=== PATIENT | female | born 1960 | race Caucasian/White ===

== ENCOUNTER 2023-07-11 14:53 | Emergency (ER) | payer BC, SELFPAY ==
[2023-07-11 14:56] VITALS: BP 152/126
[2023-07-11 15:23] LABS: % Basophils 0.9 % (0-2); % Eosinophils 2.8 % (0-6); % Immature Granulocytes 0.5 % (0-0.5); % Lymphocytes 28.3 % (20.5-51.1); % Monocytes 8.2 % (1.7-9.3); % Neutrophils 59.3 % (42.2-75.2); Absolute Basophils 0.1 10^3/uL (0-0.2); Absolute Eosinophils 0.2 10^3/uL (0-0.7); Absolute Lymphocytes 2.5 10^3/uL (1.2-3.4); Absolute Monocytes 0.7 10^3/uL (0.1-0.6); Absolute Neutrophils 5.1 10^3/uL (1.4-6.5); Hematocrit 45.5 % (37.0-47.0); Hemoglobin 14.9 g/dL (12.0-16.0); Mean Corp Hgb Conc. 32.7 g/dL (33.0-37.0); Mean Corpuscular Hgb 29.8 pg (27.0-31.0); Mean Platelet Volume 8.8 fL (7.4-10.4); Nucleated Red Blood Cells % 0 %; Platelet Count 386 10^3/uL (130-400); Red Cell Dist. Width 13.8 % (11.5-14.5); White Blood Cell Count 8.7 10^3/uL (4.8-10.8)
[2023-07-11 15:37] LABS: COVID-19 Antigen Negative (Negative)
[2023-07-11 15:39] LABS: ALT (SGPT) 21 U/L (0-35); AST (SGOT) 25 U/L (14-36); Albumin 4.4 g/dl (3.5-5.0); Alkaline Phosphatase 91 U/L (38-126); Blood Urea Nitrogen 9 mg/dl (7-17); Calcium 9.9 mg/dl (8.4-10.2); Carbon Dioxide 27 mmol/L (22-30); Chloride 104 mmol/L (98-107); Glucose 97 mg/dl (70-99); Sodium 141 mmol/L (135-145); Total Bilirubin 0.9 mg/dl (0.2-1.3); Total Protein 7.6 g/dl (6.3-8.2); eGFR > 60.00
[2023-07-11 17:07] VITALS: BP 150/87
[2023-07-11] MEDS: DECADRON 10 MG PO (17:12)
[2023-07-11] MEDS: DUONEB 3 ML INH (17:13)
[2023-07-11 17:45] LABS: D-Dimer 0.44 ug/mlFEU (0.00-0.50)
[2023-07-11 18:00] VITALS: BP 142/79
[2023-07-11 18:20] VITALS: BP 181/73
[2023-07-11 19:00] VITALS: BP 156/88
--- NOTE | 2023-07-11 20:29 | ED.GENMED ---
History of Present Illness
General
Chief Complaint: Breathing Problem
Source: patient
Exam Limitations: none
Time Seen by Provider: 07/11/23 16:39
Nursing documentation reviewed up to this point in time: agreed with
Travel History
Have you had any contact with someone who has COVID-19?: No
Do you have any symptoms of coronavirus? Fever > 100 degrees, chills, cough, shortness of breath, sore throat, loss of taste or smell, muscle aches, or headache?: No
History of Present Illness
History of Present Illness:
Patient to ED with complaint of wheezing. States she noticed symptoms over weekend.Today symptoms were worse. GODWIN withminimal activity. Brought self to ED for eval. Denies fever/chill, CP/pressure.
Past History
Past History
ED Past Medical History: Asthma, GERD, HTN and Other (C. difficile, migraines, sleep apnea, kidney stones)
ED Past Surgical History: Cholecystectomy and Orthopedic
Social History
Tobacco: Non-smoker
Personal:
Employment: Employed
Family History
Family History: Adopted
Review of Systems
Review of Systems
Allergies reviewed?: Yes
All Other Systems: ROS reviewed and negative except as documented in HPI and ROS
Constitutional: Reports no symptoms
EENT: Reports no symptoms
Respiratory: Reports cough and trouble breathing
Cardiac: Reports no symptoms
ABD/GI: Reports no symptoms
: Reports no symptoms
Musculoskeletal: Reports no symptoms
Skin: Reports no symptoms
Neurological: Reports no symptoms
Psychiatric: Reports no symptoms
Phy Exam
General Physical Exam
General Presentation: well appearing and no apparent distress
General age: appears stated age
General Skin: warm and dry
General Habitus: normal
General Mental: alert
Cardiovascular Exam
Cardiovascular Exam: regular rate/rhythm and no edema
Pulmonary Exam
Pulmonary Exam: no respiratory distress and chest non tender
Breath Sounds: Wheeze: generalized (expiratory)
Musculoskeletal Exam
Musculoskeletal Exam: full ROM and neuro vasc intact
Skin Exam
Skin Exam: normal color, warm/dry and no rash
Psychiatric Exam
Psychiatric Exam: normal mood/affect
Scores
Heart Failure Risk
Heart Failure Risk Score: Not Applicable
Course
Orders/Labs/Results
Orders:
Orders
07/11/23 15:00
Chest [CR Chest - 2 Views ] Urgent
Comment:
Reason For Exam: cough
07/11/23 15:01
EKG [Electrocardiogram (*1)] Urgent
Reason for Study: Shortness of Breath
EKG- Treatment ONCE
07/11/23 15:10
CBC/With Diff [Complete Blood Count/With Diff] Urgent
CMP [Comprehensive Metabolic Panel] Urgent
COVID-19 Antigen Urgent
Source: Nasal Swab
INF RAPID [Influenza A+B Rapid Molecular] Urgent
DENNIS Source: Nasal Swab
Specimen Description:
07/11/23 16:55
Dexamethasone Pf [Decadron] 10 mg PO NOW STA
Ipratropium/Albuterol Sulfate [Duoneb] 3 ml INH R NOW STA
07/11/23 17:27
D-Dimer Urgent
Abnormal Lab Results
07/11/23
15:10
MCHC 32.7 L g/dL
(33.0-37.0)
Absolute Monos (auto) 0.7 H 10^3/uL
(0.1-0.6)
07/11/23 15:10
07/11/23 15:10
Vital Signs
Initial and Last Documented VS:
Initial Vital Signs
Temp Pulse Resp BP Pulse Ox
97.4 F 112 18 152/126 98
07/11/23 14:56 07/11/23 14:56 07/11/23 14:56 07/11/23 14:56 07/11/23 14:56
Last Documented Vital Signs
Temp Pulse Resp BP Pulse Ox
97.4 F 92 12 156/88 95
07/11/23 14:56 07/11/23 19:00 07/11/23 18:45 07/11/23 19:00 07/11/23 19:00
*Radiology
Radiology exam reviewed: radiology read reviewed
*Pulse Oximetry
Patient hypoxic: no
*Critical Care Note
Total Time (30-74mins, 75-104mins- exclusive of procedures): Not Applicable
Update Note
Update Note:
Patient improved after duoneb. Decadron given in dept. Will continue pednisone taper at home. Able to ambulate in dept without hypoxia. Will discharge home and she will follow up with PCP. Onelia instructions s/s to return to EDf and she is
agreeable to plan
ED Attending Note
-
Portions of this chart may have been created with voice recognition software.� Occasional wrong word or��sound alike� substitutions may have occurred due to the inherent limitations of voice recognition software.
Discharge Plan
Departure
Patient Disposition: Home (Routine Discharge)
Date of Disposition: 07/11/23
Time of Disposition: 18:40
Patient with high blood pressure during this ER visit?: No
Condition: Good
Covid-19: Not Applicable
Discharge Problem:
GODWIN (dyspnea on exertion)
Instructions: Shortness of Breath (Dyspnea) (DC)
Prescriptions:
New
prednisone 10 mg Tablet
See Rx Instructions .ROUTE .COMPLEX Qty: 30 0RF
Rx Instructions:
Take By Mouth:
40 mg daily x3 days, 30 mg daily x3 days,
20 mg daily x3 days, 10 mg daily x3 days.
No Action
atenolol 50 MG tablet
50 mg PO DAILY
amlodipine 5 MG tablet
5 mg PO DAILY Qty: 90 3RF
duloxetine 30 MG capsule,delayed release(DR/EC)
30 mg PO DAILY
albuterol sulfate 1 PUFF HFA aerosol inhaler
2 puff inhalation R Q4HPRN PRN (Reason: SOB)
cyanocobalamin (vitamin B-12) 1,000 mcg Tablet
1,000 mcg PO DAILY
omeprazole 40 mg Capsule,Delayed Release(Dr/Ec)
40 mg PO DAILY
ascorbic acid (vitamin C) [Vitamin C] 250 mg Tablet,Chewable
500 mg PO DAILY
ibuprofen [Advil] 200 mg Tablet
400 mg PO Q8HPRN PRN (Reason: mild pain)
fluticasone propion-salmeterol [Advair HFA] 115-21 mcg/actuation Hfa Aerosol Inhaler
1 puff INHALATION R BID
cholecalciferol (vitamin D3) [Vitamin D3] 25 mcg (1,000 unit) Tablet
25 mcg PO DAILY
Referrals:
Eufemia Rodriguez CRNP [Family Provider] - Follow up in 2-3 days
Interventions
Interventions:
*Risk Screen - Suicide Last Done: 07/11/23 14:56
*General Assessment Last Done: 07/11/23 14:56
*Neglect/Abuse Screening Last Done: 07/11/23 14:56
ED- Fall Risk Assessment Last Done: 07/11/23 19:08
*ED COVID-19 Vaccine History Last Done: 07/11/23 16:37
*Nursing Disposition Last Done: 07/11/23 19:08
ED- Cardiac Assessment Last Done: 07/11/23 17:47
ED- Pulmonary Assessment Last Done: 07/11/23 17:47
Discharge Date and Time
Discharge Date/Time: 07/11/23 19:11
Print Language: CHADIAN
== END 2023-07-11 19:11 | disposition home or self-care (01) ==
LOC: EMR 14:53
PROVIDERS: Nurse Practitioner; EMERGENCY PHYSICIAN Emergency Medicine; FAMILY PHYSICIAN Nurse Practitioner Adult Health
DX: R06.09 Other forms of dyspnea (principal); Z11.52 Encounter for screening for COVID-19
CPT/HCPCS: 99285; 94640; 71046; 80053; 85025; 85379; 87502; 87811; 93005

== ENCOUNTER → 2023-11-18 13:57 | Outpatient (REF) | payer OTHER, SELFPAY | LOC: WDC 13:57 | PROVIDERS: ATTENDING PHYSICIAN Nurse Practitioner | DX: Z76.89 Persons encountering health services in other specified circumstances (principal); Z12.31 Encounter for screening mammogram for malignant neoplasm of breast | CPT/HCPCS: 77063; 77067 ==

== ENCOUNTER 2024-05-24 11:36 | Emergency (ER) | payer OTHER, SELFPAY ==
[2024-05-24] VITALS (8 sets, daily range): BP systolic 121–175; BP diastolic 72–104
[2024-05-24 13:11] LABS: % Basophils 0.9 % (0-2); % Eosinophils 1.8 % (0-6); % Immature Granulocytes 0.5 % (0-0.5); % Lymphocytes 28.3 % (20.5-51.1); % Neutrophils 62.5 % (42.2-75.2); Absolute Basophils 0.1 10^3/uL (0-0.2); Absolute Eosinophils 0.2 10^3/uL (0-0.7); Absolute Lymphocytes 2.3 10^3/uL (1.2-3.4); Absolute Monocytes 0.5 10^3/uL (0.1-0.6); Absolute Neutrophils 5.1 10^3/uL (1.4-6.5); Hematocrit 43.3 % (37.0-47.0); Hemoglobin 14.6 g/dL (12.0-16.0); Mean Corp Hgb Conc. 33.7 g/dL (33.0-37.0); Mean Corpuscular Hgb 30.3 pg (27.0-31.0); Mean Corpuscular Volume 89.8 fL (81.0-99.0); Mean Platelet Volume 8.6 fL (7.4-10.4); Nucleated Red Blood Cells % 0 %; Platelet Count 350 10^3/uL (130-400); Red Blood Cell Count 4.82 10^6/uL (4.20-5.40); Red Cell Dist. Width 13.5 % (11.5-14.5); White Blood Cell Count 8.1 10^3/uL (4.8-10.8)
[2024-05-24 13:20] LABS: ALT (SGPT) 26 U/L (0-35); AST (SGOT) 22 U/L (14-36); Albumin 4.5 g/dl (3.5-5.0); Alkaline Phosphatase 109 U/L (38-126); Blood Urea Nitrogen 17 mg/dl (7-17); Calcium 9.5 mg/dl (8.4-10.2); Carbon Dioxide 27 mmol/L (22-30); Chloride 103 mmol/L (98-107); Glucose 96 mg/dl (70-99); Potassium 4.6 mmol/L (3.5-5.1); Sodium 138 mmol/L (135-145); Total Bilirubin 0.9 mg/dl (0.2-1.3); Total Protein 7.2 g/dl (6.3-8.2); eGFR > 60.00
[2024-05-24 13:32] LABS: Troponin I < 0.012 ng/ml
--- NOTE | 2024-05-24 13:40 | ED.GENMED ---
History of Present Illness
<Latoya Bass PA-C - Last Filed: 05/24/24 23:54>
General
Chief Complaint: Chest Pain
Source: patient and spouse ( at bedside)
Exam Limitations: none
Time Seen by Provider: 05/24/24 13:03
Nursing documentation reviewed up to this point in time: agreed with
History of Present Illness
History of Present Illness:
Patient is a 64-year-old female with history hypertension, NSTEMI 2013 presenting to the emergency department for evaluation of chest pain. Patient states that around 9 AM this morning she was sitting down when she had acute onset squeezing pain in
her mid chest with some radiation to her back. This was associated with lightheadedness. No associated nausea, vomiting, dizziness, numbness/tingling in arms or legs. By my assessment�symptoms have resolved. Patient denies any known pleuritic
component to pain. No exertional component to symptoms.
Patient does report intermittent chest pain over the past 2 weeks similar to today's episode. Symptoms typically resolve after 30 minutes to 1 hour. There is never been exertional or pleuritic component to the symptoms. She did follow-up with her
network strategist this past week where they scheduled a stress test and echo in June.
Patient does have history of GERD but states does not feel similar. She had an NSTEMI in 2013.
Past History
<Latoya Bass PA-C - Last Filed: 05/24/24 23:54>
Past History
ED Past Medical History: Asthma, GERD, HTN and Other (C. difficile, migraines, sleep apnea, kidney stones)
ED Past Surgical History: Cholecystectomy and Orthopedic
Social History
Tobacco: Non-smoker
Personal:
Employment: Employed
Family History
Family History: Adopted
Review of Systems
<Latoya Bass PA-C - Last Filed: 05/24/24 23:54>
Review of Systems
Allergies reviewed?: Yes
All Other Systems: ROS reviewed and negative except as documented in HPI and ROS
Phy Exam
<Latoya Bass PA-C - Last Filed: 05/24/24 23:54>
Physical Exam
Physical Exam:
Vitals: Hypertensive, otherwise vital signs stable. Afebrile
General: Patient is well appearing, no acute distress
Skin: Warm and dry, no rashes or lesions
Head: Normocephalic, atraumatic
Eyes: Sclera nonicteric. EOMs intact. No nystagmus.
Throat: Protecting airway
Neck: Normal ROM, no cervical spine tenderness, no meningismus
Cardiac: Regular rate and rhythm, no murmurs. No reproducible chest wall tenderness.
Pulm: Normal respiratory effort, no wheezes, rales, rhonchi heard on exam.
Abdomen: Abdomen soft. No abdominal tenderness.
Extremities: No evidence of cyanosis or edema. Palpable and equal distal pulses in bilateral upper and lower extremities.
Neuro: AAOx3. Grossly intact. Sensation fully intact in bilateral upper and lower extremities. Strength 5/5
Psychiatric: Normal affect.
Scores
<Latoya Bass PA-C - Last Filed: 05/24/24 23:54>
Heart Score for Chest Pain Patients
STEMI patient?: No
History: Slightly or Non-Suspicious
ECG: Normal
Age: >45 - <65 years
Risk Factors: 1 or 2 Risk Factors
Troponin: </= Normal Limit
Heart Score for Chest Pain Patients: 2
Heart Score Risk: 2.5% MACE over next 6 weeks
Course
<Latoya Bass PA-C - Last Filed: 05/24/24 23:54>
Orders/Labs/Results
Orders:
Orders
05/24/24 11:36
EKG [Electrocardiogram (*1)] Urgent
Reason for Study: Chest Pain
EKG- Treatment ONCE
05/24/24 12:50
Complete Blood Count/With Diff Urgent
Comprehensive Metabolic Panel Urgent
Lipase Urgent
Comment: ADD ON
Troponin I Urgent
05/24/24 13:33
Add On- LAB Urgent
Tests Added?: lipase
05/24/24 14:03
CR Chest - 2 Views Urgent
Comment:
Reason For Exam: mid sternal chest pain
05/24/24 15:50
Electrocardiogram (*1) Urgent
Reason for Study: Chest Pain
EKG- Treatment ONCE
05/24/24 15:52
Troponin I Urgent
05/24/24 12:50
05/24/24 12:50
Vital Signs
Initial and Last Documented VS:
Initial Vital Signs
Temp Pulse Resp BP Pulse Ox
99.1 F 116 16 175/104 97
05/24/24 11:38 05/24/24 11:38 05/24/24 11:38 05/24/24 11:38 05/24/24 11:38
Last Documented Vital Signs
Temp Pulse Resp BP Pulse Ox
99.1 F 71 16 121/80 95
05/24/24 11:38 05/24/24 15:00 05/24/24 15:00 05/24/24 18:00 05/24/24 18:30
<Mariaa Che MD - Last Filed: 05/24/24 15:16>
Orders/Labs/Results
Orders:
Orders
05/24/24 11:36
EKG [Electrocardiogram (*1)] Urgent
Reason for Study: Chest Pain
EKG- Treatment ONCE
05/24/24 12:50
Complete Blood Count/With Diff Urgent
Comprehensive Metabolic Panel Urgent
Lipase Urgent
Comment: ADD ON
Troponin I Urgent
05/24/24 13:33
Add On- LAB Urgent
Tests Added?: lipase
05/24/24 14:03
CR Chest - 2 Views Urgent
Comment:
Reason For Exam: mid sternal chest pain
05/24/24 15:50
Electrocardiogram (*1) Urgent
Reason for Study: Chest Pain
EKG- Treatment ONCE
05/24/24 15:52
Troponin I Urgent
05/24/24 12:50
05/24/24 12:50
Vital Signs
Initial and Last Documented VS:
Initial Vital Signs
Temp Pulse Resp BP Pulse Ox
99.1 F 116 16 175/104 97
05/24/24 11:38 05/24/24 11:38 05/24/24 11:38 05/24/24 11:38 05/24/24 11:38
Last Documented Vital Signs
Temp Pulse Resp BP Pulse Ox
99.1 F 71 16 121/80 95
05/24/24 11:38 05/24/24 15:00 05/24/24 15:00 05/24/24 18:00 05/24/24 18:30
<Latoya Bass PA-C - Last Filed: 05/24/24 23:54>
MDM/Problems Addressed
Differential Diagnosis Includes:
Not limited to: GERD, pancreatitis, acute coronary syndrome, pneumothorax, etc.
MDM/Problems Addressed:
61-year-old female with history as documented presenting with intermittent chest pain over the past few weeks with some radiation to back. No exertional or pleuritic component to pain. No fevers, cough. Patient scheduled for stress test and echo
next month with cardiology. Patient arrives mildly hypertensive and tachycardic although normalized by my assessment without intervention. EKG initially in triage shows normal sinus rhythm without acute ischemic changes. Physical exam as above.
Patient well-appearing, no apparent distress. Lungs are clear bilaterally. Heart regular rate and rhythm. No reproducible chest wall tenderness. No abdominal tenderness. Patient has palpable and equal distal pulses in bilateral upper and lower
extremities and is perfusing well. No clinical evidence of DVT. Do not suspect aortic dissection or pulmonary embolism. Will check labs, troponin, chest x-ray.
Update: Labs reviewed. No clinically significant abnormalities. Initial troponin undetectable. Chest x-ray reviewed by me which shows no acute abnormalities. Patient remains well-appearing. Given intermittent nature of symptoms�will trend
troponin and repeat EKG.
Update: Repeat troponin undetectable with no changes in EKG. Patient remains hemodynamically stable. Low suspicion for acute cardiac emergency given troponin negative x 2 with normal EKG. Advise follow-up with PCP/cardiology. Close return
precaution discussed. Patient will keep appointment for stress test/echo next month. Patient seen with attending physician. Patient comfortable with discharge home.
Chronic conditions affecting care:
Hypertension
Acute Exacerbation and/or Progression of Chronic Illness:
Acutely hypertensive
<Latoya Bass PA-C - Last Filed: 05/24/24 23:54>
*Radiology
Radiology exam reviewed: preliminary read by ED provider (Chest x-ray reviewed by me-no acute abnormalities) and radiology read reviewed
*Pulse Oximetry
Patient hypoxic: no
*EKG
Interpreted by ED Provider?: Yes
EKG Intrepretation Date: 05/24/24
Interpretation: normal
Comparison EKG: no changes
Heart Rate: 97
Rate: normal
Rhythm: sinus
[place]: normal axis
Interval: normal interval
QRS Pattern: normal QRS
Ischemia: no ischemia
*Box Estimator Interpretation
Rate: normal
Interpretation: normal
Heart Rate: 80
Rhythm: sinus
*Critical Care Note
Total Time (30-74mins, 75-104mins- exclusive of procedures): Not Applicable
ED Attending Note
<Latoya Bass PA-C - Last Filed: 05/24/24 23:54>
-
Portions of this chart may have been created with voice recognition software.� Occasional wrong word or��sound alike� substitutions may have occurred due to the inherent limitations of voice recognition software.
<Mariaa Che MD - Last Filed: 05/24/24 15:16>
ED Attending Note
Patient seen and examined by attending physician: Yes
I performed the substantive portion of visit, reviewed & personally made and approve the management plan that is documented in note by myself or SUNIL.: Yes
ED Attending Note:
Patient appears very well and comfortable. Her lungs are clear her heart sounds regular. Awaiting second troponin.
Discharge Plan
Departure
Patient Disposition: Home (Routine Discharge)
Date of Disposition: 05/24/24
Time of Disposition: 17:49
Patient with high blood pressure during this ER visit?: Yes
Condition: Good
Covid-19: Not Applicable
Discharge Problem:
Chest pain
Instructions: Chest pain, BLOOD PRESSURE
Prescriptions:
No Action
atenolol 50 MG tablet
50 mg PO DAILY
amlodipine 5 MG tablet
5 mg PO DAILY Qty: 90 3RF
duloxetine 30 MG capsule,delayed release(DR/EC)
30 mg PO DAILY
albuterol sulfate 1 PUFF HFA aerosol inhaler
2 puff inhalation R Q4HPRN PRN (Reason: SOB)
cyanocobalamin (vitamin B-12) 1,000 mcg Tablet
1,000 mcg PO DAILY
omeprazole 40 mg Capsule,Delayed Release(Dr/Ec)
40 mg PO DAILY
ascorbic acid (vitamin C) [Vitamin C] 250 mg Tablet,Chewable
500 mg PO DAILY
ibuprofen [Advil] 200 mg Tablet
400 mg PO Q8HPRN PRN (Reason: mild pain)
fluticasone propion-salmeterol [Advair HFA] 115-21 mcg/actuation Hfa Aerosol Inhaler
1 puff INHALATION R BID
cholecalciferol (vitamin D3) [Vitamin D3] 25 mcg (1,000 unit) Tablet
25 mcg PO DAILY
prednisone 10 mg Tablet
See Rx Instructions .ROUTE .COMPLEX Qty: 30 0RF
Rx Instructions:
Take By Mouth:
40 mg daily x3 days, 30 mg daily x3 days,
20 mg daily x3 days, 10 mg daily x3 days.
Referrals:
Todd Scruggs MD [Active] - Follow up in 2-3 days
Nely Carter CRNP [Family Provider] -
Activity Restrictions/Additional Instructions:
Return to the emergency department any persistent/worsening chest pain, shortness of breath, lightheadedness/dizziness, severe back pain, numbness/tingling in extremities, worsening in current symptoms, or any other concerns
-As discussed�your lab work in the emergency department was normal. You had 2 negative troponins and normal EKGs. Your chest x-ray showed no obvious abnormalities.
-You should take it easy until you are cleared by cardiology. Stay well-hydrated.
-Is important to follow-up with cardiology for further evaluation/management to ensure that symptoms are improving. You should keep appointment for stress test and echo.
Monitor your symptoms closely and return to the emergency department w/ any acute worsening/new symptoms or any other concerns
Interventions
Interventions:
*Risk Screen - Suicide Last Done: 05/24/24 11:38
*General Assessment Last Done: 05/24/24 12:00
*Neglect/Abuse Screening Last Done: 05/24/24 11:38
ED- Fall Risk Assessment Last Done: 05/24/24 18:00
*Nursing Disposition Last Done: 05/24/24 18:00
ED- Cardiac Assessment Last Done: 05/24/24 12:00
Discharge Date and Time
Discharge Date/Time: 05/24/24 18:00
Print Language: [id number]
[2024-05-24 13:57] LABS: Lipase 27 U/L (23-300)
[2024-05-24 16:56] LABS: Troponin I < 0.012 ng/ml
== END 2024-05-24 18:00 | disposition home or self-care (01) ==
LOC: EMR 11:36
PROVIDERS: Emergency Medicine; Physician Assistant; EMERGENCY PHYSICIAN Emergency Medicine; FAMILY PHYSICIAN Nurse Practitioner
DX: R07.9 Chest pain, unspecified (principal); I10 Essential (primary) hypertension; I25.2 Old myocardial infarction; K21.9 Gastro-esophageal reflux disease without esophagitis; J45.909 Unspecified asthma, uncomplicated; G47.30 Sleep apnea, unspecified; Z90.49 Acquired absence of other specified parts of digestive tract
CPT/HCPCS: 99285; 71046; 80053; 83690; 84484; 85025; 93005

== ENCOUNTER → 2024-06-01 11:32 | Outpatient (REF) | payer OTHER, SELFPAY | LOC: HWRCS 11:32 | PROVIDERS: ATTENDING PHYSICIAN Physician Assistant Medical; FAMILY PHYSICIAN Nurse Practitioner | DX: R07.9 Chest pain, unspecified (principal); I25.10 Atherosclerotic heart disease of native coronary artery without angina pectoris | CPT/HCPCS: 78452; 93017; A9500; J2785 ==

== ENCOUNTER → 2024-06-22 08:11 | Outpatient (REF) | payer OTHER, SELFPAY | LOC: RCS 08:11 | PROVIDERS: ATTENDING PHYSICIAN Physician Assistant Medical; FAMILY PHYSICIAN Nurse Practitioner | DX: R07.9 Chest pain, unspecified (principal); R01.1 Cardiac murmur, unspecified | CPT/HCPCS: 93306 ==

== ENCOUNTER 2024-06-25 06:25 | Day surgery (SDC) | payer OTHER, SELFPAY | END 2024-06-25 14:39 | disposition home or self-care (01) | LOC: GI 06:25 | PROVIDERS: ATTENDING PHYSICIAN Internal Medicine; FAMILY PHYSICIAN Nurse Practitioner | DX: R13.10 Dysphagia, unspecified (principal); R07.89 Other chest pain; K44.9 Diaphragmatic hernia without obstruction or gangrene; K22.89 Other specified disease of esophagus; K31.89 Other diseases of stomach and duodenum; K31.7 Polyp of stomach and duodenum; K62.5 Hemorrhage of anus and rectum; K57.30 Diverticulosis of large intestine without perforation or abscess without bleeding; K62.89 Other specified diseases of anus and rectum; K62.1 Rectal polyp; K62.6 Ulcer of anus and rectum | CPT/HCPCS: 43251; 43239; 45338; 88305; 88342 ==

== ENCOUNTER → 2024-08-10 13:46 | Outpatient (REF) | payer OTHER, SELFPAY | LOC: RAD 13:46 | PROVIDERS: ATTENDING PHYSICIAN Nurse Practitioner | DX: J45.41 Moderate persistent asthma with (acute) exacerbation (principal) | CPT/HCPCS: 71046 ==

== ENCOUNTER → 2024-11-20 10:40 | Outpatient (REF) | payer OTHER, SELFPAY | LOC: WDC 10:40 | PROVIDERS: ATTENDING PHYSICIAN Nurse Practitioner Adult Health; FAMILY PHYSICIAN Nurse Practitioner | DX: Z12.31 Encounter for screening mammogram for malignant neoplasm of breast (principal) | CPT/HCPCS: 77063; 77067 ==